=== PATIENT | male | born 1955 | race Caucasian/White ===

== ENCOUNTER → 2018-09-16 | Outpatient (CLI) | payer OTHER ==
--- NOTE | 2018-09-17 14:02 | US ---
EXAMINATION TYPE: US groin LT DATE OF EXAM: 09/16/2018 COMPARISON: NONE CLINICAL HISTORY: R10.2 Pelvic and perineal pain. Left groin pain per patient. Scanned left groin with and without valsalva, no ultrasound evidence for hernia. No other abnormality noted. Scanning was limited. No evident adenopathy. IMPRESSION: No significant abnormality in the limited left groin ultrasound
== END | disposition home or self-care (01) ==
LOC: RADUSWWP 16:04
PROVIDERS: ATTEND Family Medicine
DX: R10.2 Pelvic and perineal pain (principal)

== ENCOUNTER → 2022-01-21 | Outpatient (CLI) | payer MEDICARE, OTHER ==
[2022-01-21 11:28] LABS: African American GFR (CKD) >90 (>60 ml/min/1.73 sqM); Blood Urea Nitrogen 17 mg/dL (9-20); Non-African American GFR(CKD) 88 (>60 ml/min/1.73 sqM)
--- NOTE | 2022-01-21 13:48 | CT ---
EXAMINATION TYPE: CT abdomen pelvis w con DATE OF EXAM: 01/21/2022 COMPARISON: CT dated 05/10/2015 HISTORY: Left upper quadrant pain CT DLP: 1242 mGycm Automated exposure control for dose reduction was used. TECHNIQUE: Helical acquisition of images was performed from the lung bases through the pelvis. CONTRAST: Performed with Oral Contrast and with IV Contrast, patient injected with 100 ml mL of Isovue 300. FINDINGS: LUNG BASES: Stable left lung base posterior pleural-based 6 mm partially calcified nodule as well as the more inferior minimal reticulations/fibrotic changes. LIVER/GB: Few tiny calcifications are seen at the posterior aspect of the right hepatic lobe likely r elated to previous granulomatous infection, otherwise unremarkable liver and gallbladder. PANCREAS: Dilated proximal portion of the pancreatic duct measuring up to 8mm yet without definite ob structing lesion or stone. No obvious pancreatic lesion however small lesion cannot be excluded. No p eripancreatic lymphadenopathy or fat stranding. SPLEEN: Tiny splenic calcifications likely related to previous granulomatous infection, otherwise unr emarkable spleen. ADRENALS: No significant abnormality is seen. KIDNEYS: Left parapelvic renal cysts with 2 mm cyst at the lower pole of right kidney. 4 mm nonobstru cting stone is seen at the lower pole of the left kidney. Unremarkable kidneys otherwise. FREE AIR: No free air is visualized. RETROPERITONEAL ADENOPATHY: None visualized REPRODUCTIVE ORGANS: Nonvisualized prostate, please correlate with previous prostatectomy. URINARY BLADDER: No significant abnormality is seen. PELVIC ADENOPATHY: None visualized. OSSEOUS STRUCTURES: Degenerative changes of the lower thoracic spine and at L5-S1 level. Minimal ant erolisthesis of L4 over L5 with bilateral L4-5 facet osteoarthropathy. No aggressive bone lesion. BOWEL: Previous gastric fundoplication. Unremarkable remainder of the stomach, duodenum and small aysha wel. Colonic diverticulosis. OTHER: Unremarkable abdominal aorta and IVC. No sizable ascites. Questionable small fat-containing um bilical hernia. IMPRESSION: Dilated proximal portion of the pancreatic duct measuring up to 8mm without definite pancreatic head lesion however a small pancreatic head or ampullary lesion cannot be excluded. Recommend further MRI or endoscopic ultrasound assessment. Other incidental findings as described above.
== END | disposition home or self-care (01) ==
LOC: RADCTMAIN 10:38
PROVIDERS: ATTEND Family Medicine
DX: K86.89 Other specified diseases of pancreas (principal)
CPT/HCPCS: 82565; 84520; 74177; 36415; Q9967

== ENCOUNTER 2022-05-28 17:43 | Emergency (ER) | payer MEDICARE, OTHER ==
[2022-05-28 18:01] VITALS: RESP 16
[2022-05-28 18:27] LABS: Appearance,Urine Clear (Clear); Bilirubin,Urine Negative (Negative); Blood,Urine Small (Negative); Color,Urine Yellow; Glucose,Urine (UA) Negative (Negative); Ketones,Urine Negative (Negative); Leukocyte Esterase,Urine Trace (Negative); Mucus,Urine Occasional /hpf; Nitrite,Urine Negative (Negative); Protein,Urine Negative (Negative); RBC,Urine 1 /hpf (0-5); Specific Gravity,Urine 1.017 (1.001-1.035); Squamous Epithelial Cell,Urine <1 /hpf (0-4); Urobilinogen,Urine <2.0 mg/dL (<2.0); WBC,Urine 3 /hpf (0-5)
[2022-05-28] MEDS ORDERED: KETOROLAC 15 MG/ML 1 ML VIAL IVP STA (18:43)
[2022-05-28] MEDS ORDERED: ONDANSETRON 4 MG/2 ML VIAL IVP STA (18:43)
[2022-05-28] MEDS ORDERED: MORPHINE SULFATE 4 MG/ML SYRINGE IV STA ×2 (18:43→21:33)
[2022-05-28] MEDS ORDERED: SODIUM CHLORIDE 0.9% 1,000 ML IV STA (18:43)
--- NOTE | 2022-05-28 18:46 | ED ---
General Adult HPI - General Chief complaint: Abdominal Pain Stated complaint: Blood In Urine/Kidney Stone Time Seen by Provider: 05/28/22 18:42 Source: patient, RN notes reviewed Mode of arrival: ambulatory Limitations: no limitations - History of Present Illness Initial comments: This is a 66-year-old male who presents emergent left flank pain which started at 5 PM. Patient also had a bout of hematuria prior to that. Patient states the pain is constant, waxing and waning in intensity, sharp in nature, radiates around the left flank. Patient had a computed tomography scan in February which did show an intrarenal kidney stone. No headache, no fever or chills, no changes in vision or hearing, no sore throat or difficulty with speech, no neck pain, no chest pain or shortness of breath, POSITIVE for nausea, no changes in urination or bowel movements, no numbness or tingling, no extremity pain, no skin rashes or lesions. - Related Data Allergies Allergy/AdvReac Type Severity Reaction Status Date / Time aspirin Allergy Unknown Verified 05/28/22 18:02 levofloxacin [From Levaquin] Allergy Unknown Verified 05/28/22 18:02 Review of Systems ROS Statement: Those systems with pertinent positive or pertinent negative responses have been documented in the HPI. ROS Other: All systems not noted in ROS Statement are negative. Past Medical History Past Medical History: Asthma, Cancer Additional Past Medical History / Comment(s): kidney stones, prostate cancer History of Any Multi-Drug Resistant Organisms: None Reported Past Surgical History: Appendectomy, Prostate Surgery Past Psychological History: No Psychological Hx Reported Smoking Status: Never smoker Past Alcohol Use History: None Reported Past Drug Use History: None Reported General Exam - General Exam Comments Initial Comments: Patient does not appear to be ill or toxic Limitations: no limitations General appearance: alert, in distress Head exam: Present: atraumatic, normocephalic, normal inspection Eye exam: Present: normal appearance, PERRL, EOMI. Absent: scleral icterus, conjunctival injection, periorbital swelling ENT exam: Present: normal exam, mucous membranes moist Neck exam: Present: normal inspection, full ROM. Absent: tenderness, meningismus, lymphadenopathy Respiratory exam: Present: normal lung sounds bilaterally. Absent: respiratory distress, wheezes, rales, rhonchi, stridor, chest wall tenderness, accessory muscle use Cardiovascular Exam: Present: regular rate, normal rhythm, normal heart sounds. Absent: systolic murmur, diastolic murmur, rubs, gallop, clicks GI/Abdominal exam: Present: soft, normal bowel sounds. Absent: distended, tenderness, guarding, rebound, rigid Extremities exam: Present: normal inspection, full ROM, normal capillary refill. Absent: tenderness, pedal edema, joint swelling, calf tenderness Back exam: Present: normal inspection, full ROM, CVA tenderness (L). Absent: CVA tenderness (R) Neurological exam: Present: alert, oriented X3, CN II-XII intact Psychiatric exam: Present: normal affect, normal mood Skin exam: Present: warm, dry, intact, normal color. Absent: rash Course Vital Signs 05/28/22 05/28/22 17:58 19:41 Temperature 98 F Pulse Rate 87 78 Respiratory 16 16 Rate Blood Pressure 161/88 176/88 O2 Sat by Pulse 97 98 Oximetry - Reevaluation(s) Reevaluation #1: 05/28/22 21:28 Medical record is reviewed Symptoms are improved here in the emergency department Patient is informed of results and questions answered Patient in no distress Medical Decision Making - Medical Decision Making Patient's presenting symptomology most consistent with renal colic. Not consistent with cardiopulmonary disease. Patient had hematuria and now has left flank pain. Ureteral stone is #1 differential. Of course infectious process, urinary tract malignancy and other etiologies are possible. We'll order a computed tomography scan as well as basic laboratory work. Patient has aspirin sensitivity but no history of anaphylaxis. Patient has a partially obstructing 7 mm mid left ureteral stone with moderate hydronephrosis. No evidence of infectious process. Given the size of the calcification ongoing to touch base with urology. Patient improved after pain medication and ketorolac. Flomax ordered. Patient was told to return to the ER for any signs or symptoms worsen. Told to return immediately if any other problems arise. All questions answered. Treatment plan discussed. Patient in agreement Every effort has been made to ensure accuracy of this dictation. However, due to the limitations of electronic medical records and dictation devices, errors in charting still occur. Case was discussed with the on-call urologist, Dr. Carreon, who agrees to see the patient tomorrow at 8 AM. It is controlled [facility] Monitor Dr. Watson - Lab Data Result diagrams: 05/28/22 19:05 07/14/22 19:05 Lab Results 05/28/22 05/28/22 05/28/22 Range/Units 18:14 19:05 19:05 WBC 12.5 H (3.8-10.6) k/uL RBC 5.32 (4.30-5.90) m/uL Hgb 15.8 (13.0-17.5) gm/dL Hct 49.5 (39.0-53.0) % MCV 93.1 (80.0-100.0) fL MCH 29.7 (25.0-35.0) pg MCHC 31.9 (31.0-37.0) g/dL RDW 13.8 (11.5-15.5) % Plt Count 277 (150-450) k/uL MPV 8.8 Neutrophils % 78 % Lymphocytes % 14 % Monocytes % 4 % Eosinophils % 3 % Basophils % 0 % Neutrophils # 9.7 H (1.3-7.7) k/uL Lymphocytes # 1.8 (1.0-4.8) k/uL Monocytes # 0.4 (0-1.0) k/uL Eosinophils # 0.4 (0-0.7) k/uL Basophils # 0.1 (0-0.2) k/uL Sodium 137 (137-145) mmol/L Potassium 4.5 (3.5-5.1) mmol/L Chloride 104 (98-107) mmol/L Carbon Dioxide 25 (22-30) mmol/L Anion Gap 8 mmol/L BUN 19 (9-20) mg/dL Creatinine 1.07 (0.66-1.25) mg/dL Est GFR (CKD-EPI)AfAm 83 (>60 ml/min/1.73 sqM) Est GFR (CKD-EPI)NonAf 72 (>60 ml/min/1.73 sqM) Glucose 112 H (74-99) mg/dL Calcium 9.6 (8.4-10.2) mg/dL Total Bilirubin 0.5 (0.2-1.3) mg/dL AST 27 (17-59) U/L ALT 19 (4-49) U/L Alkaline Phosphatase 101 (38-126) U/L Total Protein 7.4 (6.3-8.2) g/dL Albumin 4.5 (3.5-5.0) g/dL Lipase 107 (23-300) U/L Urine Color Yellow Urine Appearance Clear (Clear) Urine pH 5.0 (5.0-8.0) Ur Specific [place] 1.017 (1.001-1.035) Urine Protein Negative (Negative) Urine Glucose (UA) Negative (Negative) Urine Ketones Negative (Negative) Urine Blood Small H (Negative) Urine Nitrite Negative (Negative) Urine Bilirubin Negative (Negative) Urine Urobilinogen <2.0 (<2.0) mg/dL Ur Leukocyte Esterase Trace H (Negative) Urine RBC 1 (0-5) /hpf Urine WBC 3 (0-5) /hpf Urine WBC Clumps (None) /hpf Ur Squamous Epith Cells <1 (0-4) /hpf Amorphous Sediment (None) /hpf Urine Bacteria (None) /hpf Urine Mucus Occasional H (None) /hpf 05/28/22 Range/Units 19:05 WBC (3.8-10.6) k/uL RBC (4.30-5.90) m/uL Hgb (13.0-17.5) gm/dL Hct (39.0-53.0) % MCV (80.0-100.0) fL MCH (25.0-35.0) pg MCHC (31.0-37.0) g/dL RDW (11.5-15.5) % Plt Count (150-450) k/uL MPV Neutrophils % % Lymphocytes % % Monocytes % % Eosinophils % % Basophils % % Neutrophils # (1.3-7.7) k/uL Lymphocytes # (1.0-4.8) k/uL Monocytes # (0-1.0) k/uL Eosinophils # (0-0.7) k/uL Basophils # (0-0.2) k/uL Sodium (137-145) mmol/L Potassium (3.5-5.1) mmol/L Chloride (98-107) mmol/L Carbon Dioxide (22-30) mmol/L Anion Gap mmol/L BUN (9-20) mg/dL Creatinine (0.66-1.25) mg/dL Est GFR (CKD-EPI)AfAm (>60 ml/min/1.73 sqM) Est GFR (CKD-EPI)NonAf (>60 ml/min/1.73 sqM) Glucose (74-99) mg/dL Calcium (8.4-10.2) mg/dL Total Bilirubin (0.2-1.3) mg/dL AST (17-59) U/L ALT (4-49) U/L Alkaline Phosphatase (38-126) U/L Total Protein (6.3-8.2) g/dL Albumin (3.5-5.0) g/dL Lipase (23-300) U/L Urine Color Yellow Urine Appearance Cloudy (Clear) Urine pH 5.0 (5.0-8.0) Ur Specific [place] 1.013 (1.001-1.035) Urine Protein Trace H (Negative) Urine Glucose (UA) Negative (Negative) Urine Ketones Negative (Negative) Urine Blood Large H (Negative) Urine Nitrite Negative (Negative) Urine Bilirubin Negative (Negative) Urine Urobilinogen <2.0 (<2.0) mg/dL Ur Leukocyte Esterase Negative (Negative) Urine RBC >182 H (0-5) /hpf Urine WBC 3 (0-5) /hpf Urine WBC Clumps Occasional H (None) /hpf Ur Squamous Epith Cells (0-4) /hpf Amorphous Sediment Rare H (None) /hpf Urine Bacteria Rare H (None) /hpf Urine Mucus Rare H (None) /hpf - Radiology Data Radiology results: report reviewed, image reviewed Disposition Clinical Impression: Ureteral stone with hydronephrosis, Renal colic on left side Disposition: HOME SELF-CARE Condition: Stable Instructions (If sedation given, give patient instructions): Ureteral Stones (ED) Additional Instructions: Follow-up with urologist at 8 AM tomorrow morning as discussed. Follow-up with your regular physician as directed. Return to the ER immediately if any symptoms worsen, new symptoms arise, or any other problems develop. Strain urine as directed. Is patient prescribed a controlled substance at d/c from ED?: No Referrals: Chepe Carreon MD [STAFF PHYSICIAN] - 05/29/22 8:00 am Time of Disposition: 21:42
[2022-05-28 19:23] LABS: Basophils # (A) 0.1 k/uL (0-0.2); Basophils % (A) 0 %; Eosinophils # (A) 0.4 k/uL (0-0.7); Eosinophils % (A) 3 %; HCT 49.5 % (39.0-53.0); HGB 15.8 gm/dL (13.0-17.5); Lymphocytes # (A) 1.8 k/uL (1.0-4.8); Lymphocytes % (A) 14 %; MCH 29.7 pg (25.0-35.0); MCHC 31.9 g/dL (31.0-37.0); MCV 93.1 fL (80.0-100.0); Mean Platelet Volume 8.8; Monocytes # (A) 0.4 k/uL (0-1.0); Monocytes % (A) 4 %; Neutrophils # (A) 9.7 k/uL (1.3-7.7); Neutrophils % (A) 78 %; Platelet Count 277 k/uL (150-450); RBC 5.32 m/uL (4.30-5.90); RDW 13.8 % (11.5-15.5); WBC 12.5 k/uL (3.8-10.6)
[2022-05-28 19:33] LABS: Albumin 4.5 g/dL (3.5-5.0); Calcium 9.6 mg/dL (8.4-10.2); Potassium 4.5 mmol/L (3.5-5.1); Total Bilirubin 0.5 mg/dL (0.2-1.3); Total Protein 7.4 g/dL (6.3-8.2)
[2022-05-28 19:42] VITALS: PULSE 78
[2022-05-28 21:04] LABS: Amorphous Sediment,Urine Rare /hpf; Appearance,Urine Cloudy (Clear); Bacteria,Urine Rare /hpf; Bilirubin,Urine Negative (Negative); Blood,Urine Large (Negative); Color,Urine Yellow; Glucose,Urine (UA) Negative (Negative); Ketones,Urine Negative (Negative); Leukocyte Esterase,Urine Negative (Negative); Mucus,Urine Rare /hpf; Nitrite,Urine Negative (Negative); Protein,Urine Trace (Negative); RBC,Urine >182 /hpf (0-5); Specific Gravity,Urine 1.013 (1.001-1.035); Urobilinogen,Urine <2.0 mg/dL (<2.0); WBC,Urine 3 /hpf (0-5)
--- NOTE | 2022-05-28 21:13 | CT ---
EXAMINATION TYPE: CT abdomen pelvis wo con DATE OF EXAM: 05/28/2022 HISTORY: left side flank pain CT DLP: 605.4 mGycm. Automated Exposure Control for Dose Reduction was Utilized. TECHNIQUE: CT scan of the abdomen and pelvis is performed without oral or IV contrast. COMPARISON: 01/21/2022 FINDINGS: Within the limitations of a non-contrast study, the following observations are made. LUNG BASES: No significant abnormality is appreciated. LIVER/GB: No significant abnormality is appreciated. PANCREAS: Dilated distal half of the pancreatic duct redemonstrated. SPLEEN: No significant abnormality is seen. ADRENALS: No significant abnormality is seen. KIDNEYS AND URETERS AND BLADDER: There is left-sided moderate hydronephrosis down to a mid-ureteral c alcification measuring 7 mm, at the axial level of the superior iliac crest. * There is a 4 x 1 mm nonobstructing left renal calcification noted. No other left renal calcificati on. * No right renal calcification. * No right hydronephrosis. * Urinary bladder unremarkable. BOWEL: No significant abnormality is seen. GENITAL ORGANS: No gross abnormality seen. LYMPH NODES: No greater than 1cm abdominal or pelvic lymph nodes are appreciated. OSSEOUS STRUCTURES: No significant abnormality is seen. OTHER: No significant additional abnormality is seen. IMPRESSION: 1. Positive for left obstructive uropathy. 2. Abnormal pancreatic ductal appearance redemonstrated.
[2022-05-28] MEDS ORDERED: TAMSULOSIN 0.4 MG CAP.ER.24H PO STA (21:28)
[2022-05-28] MEDS ORDERED: IBUPROFEN 600 MG STARTER PACK 4 TAB BTL PO STA (21:41)
[2022-05-28] MEDS ORDERED: ACET/COD 300 MG/30 MG STARTER PACK 6 TAB BTL PO STA (21:41)
[2022-05-28] MEDS ORDERED: ONDANSETRON 4 MG ODT STARTER PACK 2 TAB BTL PO STA (21:41)
--- NOTE | 2022-05-28 22:23 | XR ---
EXAMINATION TYPE: XR KUB -2 views DATE OF EXAM: 05/28/2022 9:56 PM CLINICAL HISTORY: Pain, left flank TECHNIQUE: 2 upright AP views were obtained. COMPARISON: 04-27 FINDINGS: Scattered gas is seen in non-distended small bowel loops. Gas and fecal material is seen in non-distended colon. There is no visceromegaly or pneumoperitoneum. A 5 mm calcification projects over the 11th rib shadow, this was seen on the prior study and appears unchanged. No other calcifications are noted. The lung bases are clear and the osseous structures are intact. IMPRESSION: No acute radiographic process.
[2022-05-28 23:09] VITALS: BP 142/78; TEMP 97.9
== END 2022-05-28 23:06 | disposition home or self-care (01) ==
LOC: EC 17:43
DX: N13.2 Hydronephrosis with renal and ureteral calculous obstruction (principal); J45.909 Unspecified asthma, uncomplicated; Z88.8 Allergy status to other drugs, medicaments and biological substances; Z88.1 Allergy status to other antibiotic agents
CPT/HCPCS: 36415; 80053; 83690; 85025; 81001; 74018; 74176; 99284; 96374; 96375; 96376; 96361; J2270; J2405; J1885; S0119

== ENCOUNTER 2022-05-29 13:43 | Day surgery (SDC) | payer MEDICARE, OTHER ==
--- NOTE | 2022-05-29 13:30 | P.GSHP ---
History of Present Illness H&P Date: 05/29/22 Chief Complaint: Left renal colic The patient is a 66-year-old white male with a history of urolithiasis. Imaging studies in February 2022 revealed a renal calculus. Yesterday, he experienced acute onset of left flank pain. CT scan of the abdomen and pelvis reveals moderate left hydronephrosis due to a 7 mm mid ureteral calculus. - Constitutional Constitutional: Reports chills, Denies fever - Gastrointestinal Gastrointestinal: Reports nausea, Reports vomiting - Genitourinary (Male) Genitourinary: Reports flank pain, Reports hematuria, Reports kidney stones Past Medical History Past Medical History: Asthma, Cancer Additional Past Medical History / Comment(s): kidney stones, prostate cancer History of Any Multi-Drug Resistant Organisms: None Reported Past Surgical History: Appendectomy, Prostate Surgery Past Psychological History: No Psychological Hx Reported Smoking Status: Never smoker Past Alcohol Use History: None Reported Past Drug Use History: None Reported Medications and Allergies Allergies Allergy/AdvReac Type Severity Reaction Status Date / Time aspirin Allergy Unknown Verified 05/28/22 18:02 levofloxacin [From Levaquin] Allergy Unknown Verified 05/28/22 18:02 Surgical - Exam - General well developed, well nourished, no distress - Neck no masses, trachea midline - Respiratory normal respiratory effort - Abdomen Abdomen: soft, non tender, no guarding, no rigid, no rebound - Genitourinary normal penis with no external lesions, testicles non-tender - Psychiatric oriented to time, oriented to person, oriented to place, speech is normal, memory intact Results - Imaging CT scan - abdomen: report reviewed, image reviewed Assessment and Plan (1) Ureteral stone with hydronephrosis Status: Acute Code(s): N13.2 - HYDRONEPHROSIS WITH RENAL AND URETERAL CALCULOUS OBSTRUCTION SNOMED Code(s): 36608533 Plan: Cystoscopy, left ureteral stent insertion. The procedure has been reviewed in detail with the patient. He has been made aware of potential risks, which include anesthesia, bleeding, infection, inability to place a stent, and ureteral injury. He indicates that in the past, difficulty has been experienced in placing a Hamilton catheter. He has previously undergone a radical prostatectomy for prostate cancer, and he may have a vesical neck contracture. If so, this may require urethral dilation and/or transurethral incision of the vesical neck contracture. This will be done to the least extent necessary to perform cystoscopy. Nonetheless, he reports mild stress urinary incontinence and was advised that this could worsen postoperatively.
[2022-05-29] MEDS ORDERED: LACTATED RINGERS 1,000 ML IV ONE ×4 (14:20→16:30)
[2022-05-29] MEDS ORDERED: ONDANSETRON 4 MG/2 ML VIAL ONE (14:32)
[2022-05-29] MEDS ORDERED: DEXAMETHASONE SOD PHOSPHATE 4 MG/ML 1 ML VIAL IVP ONE (14:36)
[2022-05-29] MEDS ORDERED: PROPOFOL 10 MG/ML 20 ML VIAL IV ONE (14:44)
[2022-05-29] MEDS ORDERED: SUCCINYLCHOLINE CHLORIDE 100 MG/5 ML SYR IV ONE (14:44)
[2022-05-29] MEDS ORDERED: fentaNYL (PF) 50 MCG/ML 2 ML AMP ONE (14:44)
[2022-05-29] MEDS ORDERED: LIDOCAINE 2% INJ 20 MG/ML (2 ML VIAL) ONE (14:44)
[2022-05-29] MEDS ORDERED: MIDAZOLAM 2 MG/2 ML VIAL ONE (14:44)
--- NOTE | 2022-05-29 15:24 | P.OP ---
Date of Procedure: 05/29/22 Preoperative Diagnosis: Left hydronephrosis secondary to left ureteral calculus Postoperative Diagnosis: Same, vesical neck contracture Procedure(s) Performed: Cystoscopy, transurethral incision of vesical neck contracture, left ureteral stent insertion Anesthesia: MARCUSA Surgeon: Chepe Carreon Estimated Blood Loss (ml): 5 IV fluids (ml): 300 Pathology: none sent Condition: stable Disposition: PACU Indications for Procedure: The patient is a 66-year-old white male with a history of urolithiasis. Imaging studies in February 2022 revealed a renal calculus. Yesterday, he experienced acute onset of left flank pain. CT scan of the abdomen and pelvis reveals moderate left hydronephrosis due to a 7 mm mid ureteral calculus. Operative Findings: Vesical neck contracture. Successful left ureteral stent insertion. Description of Procedure: The patient was taken to the operating room and placed in the dorsolithotomy position, with legs supported in Luis A stirrups. The external genitalia was pr epped and draped sterilely. The 30 lens was used to introduce the 19-Slovak Stortz cystoscopic sheath through the urethra and under direct vision. The patient was noted to have a vesical neck contracture measuring approximately 16- Slovak in caliber. The visual urethrotome was used to incise the vesical neck contracture at the 12 o'clock position. This was done only enough to allow passage of the cystoscope into the bladder with minimal difficulty. The bladder was examined in its entirety. Both ureteral orifices were of normal anatomic location and configuration, and clear urine effluxed from both. No tumors or foreign bodies were seen. A 0.035 inch Glidewire was passed through the cystoscope. The left ureteral orifice was cannulated, and the Glidewire was slowly advanced up to the renal pelvis. A 26 cm, 4.8-Slovak double-J ureteral stent was placed over the wire. Proper stent positioning was verified fluoroscopically and endoscopically. The bladder was emptied and the cystoscope removed. The patient tolerated the procedure well was taken to the recovery room in stable condition.
[2022-05-29 15:45] VITALS: TEMP 97.7
--- NOTE | 2022-05-29 15:56 | FL ---
Fluoroscopy HISTORY: Stent placement, cystoscopy 7 seconds fluoroscopy time supplied to the referring clinician. 3 intraoperative C-arm images docume nt the procedure. See dictated report from urology.
[2022-05-29] MEDS ORDERED: KETOROLAC 15 MG/ML 1 ML VIAL IVP ONE (16:00)
[2022-05-29] MEDS ORDERED: HYDROmorphone 0.5 MG/0.5 ML SYRINGE IVP ONE (16:10)
[2022-05-29 17:00] VITALS: BP 154/80; PULSE 83; RESP 20
== END 2022-05-29 17:30 | disposition home or self-care (01) ==
LOC: OR 13:43
PROVIDERS: ATTEND Urology
DX: N13.2 Hydronephrosis with renal and ureteral calculous obstruction (principal); N32.0 Bladder-neck obstruction; J45.909 Unspecified asthma, uncomplicated; Z85.46 Personal history of malignant neoplasm of prostate; Z79.899 Other long term (current) drug therapy; Z88.6 Allergy status to analgesic agent; Z88.1 Allergy status to other antibiotic agents; Z90.49 Acquired absence of other specified parts of digestive tract; Z98.890 Other specified postprocedural states
CPT/HCPCS: 52332; C1769 ×2; J2250; J1100; J0690; J2405; J3010; J1885; J0330; J2704; J1170; J2001